=== PATIENT | female | born 1955 | race Caucasian/White ===

== ENCOUNTER → 2017-10-28 | Outpatient (CLI) | payer OTHER ==
--- NOTE | 2017-10-28 16:00 | PCVCIMAG ---
EXAM: BILATERAL CAROTID DUPLEX INDICATION: Carotid Occlusive Disease. FINDINGS: Doppler Measurements (centimeters per second): RIGHT: Peak CCA-91, Peak ECA-152, Diastolic ICA-83, Peak ICA-296, ICA/CCA Ratio-3.3. LEFT: Peak CCA-116, Peak ECA-123, Diastolic ICA-26, Peak ICA-104, ICA/CCA Ratio-0.9. RIGHT CAROTID: The carotid bulb has moderate plaque. The proximal internal carotid artery shows 80% stenosis. The common carotid artery shows no significant stenosis. The external carotid artery shows 50% stenosis. LEFT CAROTID: The carotid bulb has mild plaque. The proximal internal carotid artery shows <40% stenosis. The common carotid artery shows no significant stenosis. The external carotid artery shows no significant stenosis. Antegrade flow in both vertebral arteries. IMPRESSION: 80% stenosis of the right internal carotid artery with moderate plaque. <40% stenosis of the left internal carotid artery with mild plaque. LOC:[place] [id number]
--- NOTE | 2017-10-29 07:51 | PCVCIMAG ---
APPROVED REPORT Study performed: 10/28/2017 16:07:29 Exam: Stress Echocardiogram Indication: Hyperlipidemia, Hypertension Patient Location: Echo lab Stress Nurse: Kim Ramirez RN Status: routine Ht: 5 ft 4 in HR: 82 bpm BP: 160/80 mmHg Rhythm: NSR Medical History Medical History: Hyperlipidemia, HTN Procedure The patient underwent an Exercise Stress Test using the Geovany Protocol. Blood pressure, heart rate, and EKG were monitored. An Echocardiogram was performed by gas plant technician in four stages in quad fashion. At peak stress, four selected images were obtained and placed side by side with resting images for comparison. Stress Test Details Stress Test: Exercise stress testing was performed using a Geovany protocol. HR Resting HR: 82 bpmMax Heart Rate (APMHR): 157 bpm Max HR Achieved: 160 bpmTarget HR (85% APMHR): 133 bpm % of APMHR: 101 HR response to stress: Normal HR response to stress BP Resting BP: 160/80 mmHg Max BP: 240/90 mmHg ECG Resting ECG: RBBB Stress ECG: RBBB ST Change: Eqivocally ischemic Arrhythmia: PAC Recovery ECG: Sinus Rhythm, RBBB Recovery ST Change: Eqivocally ischemic Clinical Reason for Termination: Hypertensive Exercise duration: 7 min 40 sec Highest Stage Achieved: Stage 3: 3.4 mph at 14% grade. Exercise capacity: 10.10 METs Overall Exercise Capacity for Age: Normal Test stopped due to hypertensive response to exercise. Pre-Stress Echo The resting Echocardiogram showed normal left ventricular contractility with an estimated Ejection Fraction of about 55-60%. Left ventricular hypertrophy. Post-Stress Echo The stress Echocardiogram showed normal left ventricular contractility with an estimated Ejection Fraction of about 60-65%. Mild hypokinesis basal inferior wall. Left ventricular hypertrophy. Conclusion Clinical Response: Non-ischemic Exercise Capacity: Average Stress ECG Response: Equivocal Stress Echo Images: Ischemic Positive stress echo study. Other Information Study Quality: Good <Conclusion> Positive stress echo study.
== END | disposition home or self-care (01) ==
LOC: PCVCIMAG 17:18
PROVIDERS: ATTEND Internal Medicine Cardiovascular Disease
DX: I65.23 Occlusion and stenosis of bilateral carotid arteries (principal); R09.89 Other specified symptoms and signs involving the circulatory and respiratory systems; R06.09 Other forms of dyspnea; Z86.73 Personal history of transient ischemic attack (TIA), and cerebral infarction without residual deficits
CPT/HCPCS: 93325; 93351; 93880

== ENCOUNTER → 2017-10-29 | Outpatient (CLI) | payer OTHER ==
[~2017-10-29] MED LIST: DIAZEPAM 10 MG TABLET. ONE; HEPARIN 1,000 UNIT/ML VIAL for PCVC ONE; IOHEXOL 300 MG/ML 100ML VIAL. ONE; IOHEXOL 350 MG/ML 100 ML VIAL. ONE; IV NORMAL SALINE 1000ML BAG 1,000 ML ONE; IV NORMAL SALINE 500ML BAG 1,500 ML ONE; LIDOCAINE 1%/EPI 1:100,000 20 ML VIAL. ONE; MIDAZOLAM HCL/PF 2 MG/2 ML VIAL. ONE; fentaNYL PF VIAL 100 MCG/2 ML VIAL ONE
--- NOTE | 2017-10-29 15:50 | PCVCINTER ---
EXAM: 1. CERVICOEPHALIC ARCH AORTOGRAM. 2. BILATERAL CAROTID ANGIOGRAPHY. 3. LEFT VERTEBROBASILAR ANGIOGRAPHY. 4. BILATERAL RENAL ANGIOGRAPHY. 5. BILATERAL ILEOFEMORAL ANGIOGRAPHY. INDICATION: Carotid occlusive disease. Left subclavian steal. Hypertension. Renal atherosclerosis. Recent carotid duplex suggesting high-grade right carotid stenosis. PROCEDURE: Procedure and risks of the procedures listed above were discussed with the patient and consent obtained. Risks including but not limited to bleeding, infection, stroke, vascular injury, neurologic injury, embolization, allergic reactions, and contrast-induced nephropathy requiring dialysis were discussed as appropriate and consent obtained. Patient was placed on the angiography table. IV conscious sedation was used throughout procedure with appropriate monitoring from 11:30 AM through 12:15 PM. The right groin was prepped and draped in the normal sterile fashion. Ultrasound was used to interrogate the right groin and demonstrate the right common femoral artery. An ultrasound image was saved. Under ultrasound guidance a 21 gauge needle was used to gain access into the right common femoral artery and a 6F vascular sheath was placed. Catheter was placed into the ascending aorta and cervicocephalic aortic arch angiogram performed. Catheter was placed into the suprarenal abdominal aorta and abdominal aortic angiogram performed. Catheter was placed at the aortic bifurcation and bilateral iliofemoral angiography performed. Catheter was placed into the right common carotid artery and right common carotid angiogram performed. Catheter was placed into the left common carotid artery and left common carotid angiogram performed. Catheter was placed into the left subclavian artery and left vertebro-basilar angiogram performed. Catheter was placed into the right renal artery and right renal angiogram performed. Catheter was placed into the left renal artery and left renal angiogram performed. Dr. Tellez joined the procedure and he then performed coronary angiography. Please see his separate dictation for full details. Catheters and wires were removed and hemostasis obtained using the FISH device. No immediate complications. FINDINGS: Cervicocephalic arch aortogram: The origins of the great vessels are patent. Cranial directed flow in the right and left vertebral arteries. Right common carotid angiogram: This injection fills the right anterior, middle, and posterior cerebral distributions which are otherwise within normal limits. The cavernous and petrous carotid artery are patent. Moderate plaque proximal internal carotid artery causes 60% eccentric stenosis not felt to be critically flow-limiting. The common and external carotid arteries are patent. Left common carotid angiogram: This injection fills the right and left anterior cerebral and the left middle cerebral distributions all of which show satisfactory patency without evidence of significant aneurysm or stenosis. The cavernous carotid and petrous carotid arteries show good patency. Mild plaque in the proximal internal carotid artery with no evidence of significant internal carotid artery stenosis. The common carotid and external carotid arteries are patent. Left vertebrobasilar angiogram: The left vertebral artery is patent as is the basilar artery and both posterior cerebral arteries. Abdominal aortogram: There is one right and one left renal artery. Minimal plaque infrarenal abdominal aorta without significant stenosis. Right renal angiogram: Moderate plaque proximal vessel causes only minimal stenosis. Left renal angiogram: Minimal plaque proximal vessel does not cause significant stenosis. Bilateral iliofemoral angiogram: The right and left common and external iliac arteries are patent. Both internal iliac arteries are patent. The right and left common femoral and profunda femoral arteries are patent. Visualized portions of the upper superficial femoral arteries are patent. IMPRESSION: 60% eccentric stenosis proximal right internal carotid artery is not felt to be flow-limiting. No significant left carotid stenosis. LOC:[place] [id number]
--- NOTE | 2017-10-29 19:16 | PCVCINTER ---
APPROVED REPORT Study performed: 10/29/2017 11:09:45 Patient Details Patient Status: Out-Patient Room #: The patient is a 62 year-old Female Event Personnel Rosalinda Garcia MD, Luigi Moon RT(R), Ramy Lyles RN, Bartolo Starks RT(R)() Risk Factors Cerebrovascular DiseaseFamily History, Hypercholesterolemia Previous Procedures/Diagnoses TIA Procedure Narrative A 6F sheath was inserted into the right femoral artery. Coronary angiography was performed using coronary diagnostic catheters. The right coronary system was accessed and visualized with a JR4 catheter. The left coronary system was accessed and visualized with a JL4 catheter. The left ventricle was accessed and visualized with a Straight Pigtail catheter. Left ventriculogram was performed in AZUL projection. Closure device was deployed with a 6 Fr FISH. The patient tolerated the procedure well and there were no complications associated with the procedure. There was no hematoma. Hemodynamics The aortic pressure is 109/58 mmHg with a mean of 79 mmHg. The left ventricular pressure is 112/8 mmHg with a mean of 18 mmHg. Conclusion #1 left main free of disease giving rise to LAD and circumflex #2 LAD with mild disease extends to the apex no occlusive disease #3 circumflex OM is nondominant moderate in size with an eccentric 30-40% proximal lesion #4 dominant right coronary artery with an eccentric proximal mid focal lesion of 60% otherwise well-preserved vessel #5 normal left ventricular size and hyperdynamic LV function. Has cavity obliteration EF 65-70% (significant LVH) Recommendations and plan: Continue aggressive risk factor modification. Will need hypertensive medications Will follow right coronary artery lesion. No indication for current intervention.
== END | disposition home or self-care (01) ==
LOC: PCVCINTER 10:08
PROVIDERS: ATTEND Nuclear Medicine Nuclear Cardiology
DX: I65.23 Occlusion and stenosis of bilateral carotid arteries (principal); I25.10 Atherosclerotic heart disease of native coronary artery without angina pectoris; I70.1 Atherosclerosis of renal artery; I70.0 Atherosclerosis of aorta; I10 Essential (primary) hypertension; E78.5 Hyperlipidemia, unspecified; Z72.89 Other problems related to lifestyle; Z88.5 Allergy status to narcotic agent; Z88.8 Allergy status to other drugs, medicaments and biological substances; Z86.73 Personal history of transient ischemic attack (TIA), and cerebral infarction without residual deficits
CPT/HCPCS: 36223; 36225; 36252; 75630; 76937; 93458; 99152; 99153; C1751; C1760; C1769; C1894; J1644; J2250; J3010; J3490; J7030; J7040; Q9967

== ENCOUNTER → 2019-01-19 | Outpatient (CLI) | payer OTHER ==
--- NOTE | 2019-01-19 13:27 | PCVCIMAG ---
APPROVED REPORT Indications Stenosis Doppler Spectral Velocity Analysis PSV / EDVPSV / EDV ECA (R) 107 / 14 cm/sECA (L) 103 / 11 cm/s dICA (R) 86 / 19 cm/sdICA (L) 56 / 19 cm/s Jolanta (R) 187 / 51 cm/smICA (L) 86 / 27 cm/s pICA (R) 229 / 71 cm/spICA (L) 88 / 25 cm/s Bulb (R) 49 / 14 cm/sBulb (L) 72 / 25 cm/s dCCA (R) 78 / 22 cm/sdCCA (L) 98 / 17 cm/s mCCA (R) 77 / 19 cm/smCCA (L) 101 / 23 cm/s Vert (R) 17 / 7 cm/sVert (L) 40 / 11 cm/s ICA/CCA 2.94ICA/CCA 0.90 Basic Measurements Blood Pressure: Pulses: Right Left RightLeft Brachial(Sitting) 156/79jeFv889/78mmHgTemporal Real Time B-Mode Imaging Vert. (R)AntegradeVert. (L)Antegrade Findings The right carotid bulb has moderate plaque. The right proximal internal carotid artery shows 70-90% stenosis. The right common carotid artery shows no significant stenosis. The right external carotid artery shows no significant stenosis. The left carotid bulb has moderate calcified plaque. The left proximal internal carotid artery shows <40% stenosis. The left common carotid artery shows no significant stenosis. The left external carotid artery shows no significant stenosis. Conclusion 1. Right internal carotid artery stenosis (70-90%). 2. Left internal carotid artery stenosis (<40%) 3. Antegrade vertebral flow In comparison with a study dated October 2017, no significant differences were identified
== END | disposition home or self-care (01) ==
LOC: PCVCIMAG 12:51
PROVIDERS: ATTEND Internal Medicine Cardiovascular Disease
DX: I65.23 Occlusion and stenosis of bilateral carotid arteries (principal); I25.10 Atherosclerotic heart disease of native coronary artery without angina pectoris; E78.00 Pure hypercholesterolemia, unspecified; I10 Essential (primary) hypertension; E78.5 Hyperlipidemia, unspecified; Z79.82 Long term (current) use of aspirin; Z79.899 Other long term (current) drug therapy; Z88.8 Allergy status to other drugs, medicaments and biological substances
CPT/HCPCS: 93880